=== PATIENT | female | born 1985 | race Caucasian/White ===

== ENCOUNTER → 2017-11-25 13:16 | Outpatient (POV) | payer BC, OTHER, SELFPAY | PROVIDERS: Family Provider Nurse Practitioner Family; PCP Family Medicine; Visit Provider Specialist | DX: R20.2 Paresthesia of skin (principal) | CPT/HCPCS: 95886; 95907 ==

== ENCOUNTER → 2018-01-27 13:47 | Outpatient (CLI) | payer BC, OTHER, SELFPAY ==
[2018-01-27 15:09] LABS: Anion Gap 15.6 mEq/L (5-15); Blood Urea Nitrogen 13 mg/dL (7-18); Carbon Dioxide 25 mmol/L (21.0-32.0); Chloride 105 mmol/L (98-107); Creatinine,Serum 0.65 mg/dL (0.55-1.02); Estimated Glomerular Filt Rate 106 ml/min (>60); GFR (African American) 128 ML/MIN (>60); Glucose 99 mg/dL (74-106); Potassium 4.6 mmoL/L (3.5-5.1); Sodium 141 mmol/L (136-145)
== END ==
PROVIDERS: Visit Provider Surgery
DX: Z01.818 Encounter for other preprocedural examination (principal)
CPT/HCPCS: 36415; 80048

== ENCOUNTER → 2018-03-24 09:33 | Outpatient (POV) | payer BC, SELFPAY | PROVIDERS: Family Provider Nurse Practitioner Family; PCP Family Medicine; Visit Provider Specialist | DX: M25.539 Pain in unspecified wrist (principal); R20.0 Anesthesia of skin | CPT/HCPCS: 95886; 95909 ==

== ENCOUNTER → 2018-05-19 11:23 | Outpatient (CLI) | payer BC, SELFPAY ==
[2018-05-19 11:42] LABS: Basophils # 0.1 K/mm3 (0-0.2); Basophils % 0.6 % (0.1-2.0); Eosinophils # 0.1 K/mm3 (0.0-0.4); Eosinophils % 1.1 % (0.1-12.0); Hematocrit 40.8 % (37.0-47.0); Hemoglobin 13.3 g/dL (12.2-16.2); Lymphocytes # 3.6 K/mm3 (0.7-4.5); Lymphocytes % 31.2 K/mm3 (10-50); Mean Corpuscular HGB Conc 32.5 g/dL (31.8-35.4); Mean Corpuscular Hemoglobin 26.9 pg (27.0-31.2); Mean Corpuscular Volume 82.9 fl (81-99); Mean Platelet Volume 6.8 fl (7.4-10.4); Monocytes # 0.4 K/mm3 (0.1-1.0); Neutrophils # 7.3 K/mm3 (1.8-7.8); Neutrophils % 64.1 % (37.0-80.0); Platelet Count 418 K/mm3 (142-424); Red Blood Count 4.93 M/mm3 (4.20-5.40); Red Cell Distribution Width 13.1 % (11.5-17.5); White Blood Count 11.4 K/mm3 (4.8-10.8)
[2018-05-19 12:22] LABS: Anion Gap 16.1 mEq/L (5-15); Blood Urea Nitrogen 12 mg/dL (7-18); C-Reactive Protein 1.3 mg/L (0.0-0.9); Calcium 9.2 mg/dL (8.5-10.1); Carbon Dioxide 23 mmol/L (21.0-32.0); Chloride 102 mmol/L (98-107); Creatinine,Serum 0.74 mg/dL (0.55-1.02); Estimated Glomerular Filt Rate 91 ml/min (>60); Ferritin 67 ng/mL (8-388); GFR (African American) 110 ML/MIN (>60); Glucose 105 mg/dL (74-106); Potassium 4.1 mmoL/L (3.5-5.1); Sodium 137 mmol/L (136-145)
[2018-05-19 12:24] LABS: Erythrocyte Sedimentation Rate 47 mm/hr (0-20)
[2018-05-20 08:22] LABS: Iron 56 ug/dL (27-159); UIBC 301 ug/dL (131-425)
[2018-05-21 11:25] LABS: Vitamin B12 702 pg/mL (232-1245)
[2018-05-21 11:26] LABS: Vitamin D 25 Hydroxy 28.1 ng/mL (30.0-100.0)
[2018-05-21 11:30] LABS: Iron Saturation 16 % (15-55)
== END ==
PROVIDERS: PCP Nurse Practitioner Family; Visit Provider Nurse Practitioner Acute Care
DX: R19.7 Diarrhea, unspecified (principal); R13.10 Dysphagia, unspecified
CPT/HCPCS: 36415; 80048; 82607; 82652; 82728; 83540; 83550; 85025; 85651; 86140

== ENCOUNTER → 2019-01-20 14:33 | Outpatient (CLI) | payer BC, SELFPAY ==
[2019-01-20 15:14] LABS: Basophils # 0.1 K/mm3 (0-0.2); Basophils % 0.6 % (0.1-2.0); Eosinophils # 0.1 K/mm3 (0.0-0.4); Eosinophils % 1.1 % (0.1-12.0); Hematocrit 39.5 % (37.0-47.0); Hemoglobin 13.1 g/dL (12.2-16.2); Lymphocytes # 3.3 K/mm3 (0.7-4.5); Lymphocytes % 28.6 % (10-50); Mean Corpuscular HGB Conc 33.2 g/dL (31.8-35.4); Mean Corpuscular Hemoglobin 26.5 pg (27.0-31.2); Mean Corpuscular Volume 79.7 fl (81-99); Mean Platelet Volume 6.8 fl (7.4-10.4); Monocytes # 0.5 K/mm3 (0.1-1.0); Neutrophils # 7.6 K/mm3 (1.8-7.8); Neutrophils % 65.7 % (37.0-80.0); Platelet Count 390 K/mm3 (142-424); Red Blood Count 4.96 M/mm3 (4.20-5.40); Red Cell Distribution Width 13.1 % (11.5-17.5); White Blood Count 11.6 K/mm3 (4.8-10.8)
[2019-01-20 18:34] LABS: Alanine Aminotransferase 22 U/L (12-78); Albumin Level 3.6 gm/dL (3.4-5.0); Alkaline Phosphatase 75 U/L (46-116); Anion Gap 16.2 mEq/L (5-15); Aspartate Amino Transferase 9 U/L (15-37); Bilirubin,Total 0.2 mg/dL (0.2-1.0); Blood Urea Nitrogen 16 mg/dL (7-18); Calcium 9.4 mg/dL (8.5-10.1); Carbon Dioxide 26 mmol/L (21.0-32.0); Chloride 105 mmol/L (98-107); Chol/HDL Ratio 7.7 (1-3.5); Cholesterol 231 mg/dL (140-200); Creatinine,Serum 0.71 mg/dL (0.55-1.02); Estimated Glomerular Filt Rate 95 ml/min (>60); Free T4 (Free Thyroxine) 1.06 ng/dl (0.76-1.46); GFR (African American) 115 ML/MIN (>60); Globulin 3.7 gm/dl (1.3-3.2); Glucose 84 mg/dL (74-106); HDL Cholesterol 30 mg/dL (29-89); LDL Cholesterol 168 mg/dL (0-130); Potassium 4.2 mmoL/L (3.5-5.1); Sodium 143 mmol/L (136-145); Thyroid Stimulating Hormone 2.09 uIU/ml (0.358-3.740); Total Protein,Serum 7.3 gm/dL (6.4-8.2); Triglycerides 167 mg/dL (30-200); VLDL Cholesterol 33 mg/dL (0-40)
== END ==
PROVIDERS: Visit Provider Nurse Practitioner Family
DX: R63.4 Abnormal weight loss (principal); E78.2 Mixed hyperlipidemia
CPT/HCPCS: 36415; 80053; 80061; 84439; 84443; 85025

== ENCOUNTER → 2019-11-06 14:23 | Outpatient (CLI) | payer BC, SELFPAY ==
--- NOTE | 2019-11-06 14:30 | XR_ITS ---
PROCEDURE: XR WRIST LT MIN 3V CLINICAL INDICATION: LT WRIST INJURY,LT WRIST PAIN COMPARISON: No exams were available for comparison FINDINGS: No fracture, dislocation, lytic change, or blastic change evident. No significant degenerative change IMPRESSION: No acute findings. Dictated by: Carlitos Covarrubias MD 11/06/2019 14:47 Electronically signed by Carlitos Covarrubias MD in [place] 11/06/2019 14:47
== END ==
PROVIDERS: PCP Nurse Practitioner Family; Visit Provider Nurse Practitioner Family
DX: S69.92XA Unspecified injury of left wrist, hand and finger(s), initial encounter (principal); M25.532 Pain in left wrist
CPT/HCPCS: 73110

== ENCOUNTER → 2020-08-04 14:45 | Outpatient (CLI) | payer BC, SELFPAY ==
--- NOTE | 2020-08-04 14:51 | XR_ITS ---
PROCEDURE: XR LUMBAR SPINE MIN 4V CLINICAL INDICATION: LUMBAGO W/SCIATICA COMPARISON: CR LS5 LUMBAR SPINE 5 VIEWS from 08/22/2016 FINDINGS: No fracture or dislocation. No lytic or blastic change. There is normal mineralization. There is minimal lumbar curvature convex right. Mild degenerative disc disease is present at L4-5 . there is partial lumbarization of L5. IMPRESSION: Degenerative disc disease L4-5 Dictated by: Carlitos Covarrubias MD 08/04/2020 16:42 Carlitos Covarrubias MD in [place] 08/04/2020 16:42
== END ==
PROVIDERS: PCP Nurse Practitioner Family; Visit Provider Nurse Practitioner Family
DX: M54.42 Lumbago with sciatica, left side (principal)
CPT/HCPCS: 72110

== ENCOUNTER → 2020-08-09 07:46 | Outpatient (CLI) | payer BC, SELFPAY ==
--- NOTE | 2020-08-09 07:51 | MR_ITS ---
PROCEDURE: MR LUMBAR SPINE WO CON CLINICAL INDICATION: LUMBAGO WITH SCIATICA, LEFT SIDE LOW BACK PAIN, LEFT LEG NUMBNESS, XRAYS 08-04-20. PRIOR MRI 10-11-16 COMPARISON: MR [facility] MRI-BRAIN W/WO from 07/16/2017 CR XR LUMBAR SPINE MIN 4V from 08/04/2020 TECHNIQUE: Standard multiplanar multiecho sequences are performed without contrast. 3-D MIP and myelographic images are also rendered and reviewed FINDINGS: There is normal alignment. The spinal cord ends at the T12-L1 level. L1-L2: Unremarkable. L2-L3: Unremarkable. L3-L4: Unremarkable. L4-5: There is degenerative disc disease at L4-5. There are type 1 endplate changes with minimal bulging disc and some minimal endplate irregularity of the inferior endplate of L4. L5-S1: Unremarkable. IMPRESSION: Degenerative disc disease at L4-5 with type 1 discogenic endplate changes and minimal bulging disc.. The changes at L4-5 could also be seen with early discitis. Please correlate with clinical parameters. Dictated by: Carlitos Covarrubias MD 08/11/2020 08:39 Carlitos Covarrubias MD in [place] 08/11/2020 08:39
== END ==
PROVIDERS: PCP Nurse Practitioner Family; Visit Provider Nurse Practitioner Family
DX: M54.42 Lumbago with sciatica, left side (principal); M43.06 Spondylolysis, lumbar region
CPT/HCPCS: 72148; 76376

== ENCOUNTER → 2020-08-23 12:28 | Outpatient (CLI) | payer BC, SELFPAY ==
[2020-08-23 12:57] LABS: Basophils # 0.1 K/mm3 (0-0.2); Basophils % 0.5 % (0.1-2.0); Eosinophils # 0.2 K/mm3 (0.0-0.4); Eosinophils % 1.1 % (0.1-12.0); Hematocrit 41.3 % (37.0-47.0); Hemoglobin 14.3 g/dL (12.2-16.2); Lymphocytes # 3.7 K/mm3 (0.7-4.5); Lymphocytes % 22.7 % (10-50); Mean Corpuscular HGB Conc 34.6 g/dL (31.8-35.4); Mean Corpuscular Hemoglobin 28.6 pg (27.0-31.2); Mean Corpuscular Volume 82.7 fl (81-99); Mean Platelet Volume 6.8 fl (7.4-10.4); Monocytes # 0.6 K/mm3 (0.1-1.0); Monocytes % 3.7 % (1.7-9.3); Neutrophils # 11.8 K/mm3 (1.8-7.8); Platelet Count 417 K/mm3 (142-424); Red Blood Count 4.99 M/mm3 (4.20-5.40); Red Cell Distribution Width 13.8 % (11.5-17.5); White Blood Count 16.4 K/mm3 (4.8-10.8)
[2020-08-23 13:12] LABS: MANUAL DIFFERENTIAL MANUAL DIFFERENTIAL (MANUAL DIFF)
[2020-08-23 13:17] LABS: Chloride 102 mmol/L (98-107); Potassium 4.2 mmoL/L (3.5-5.1); Sodium 137 mmol/L (136-145)
[2020-08-23 13:20] LABS: Alanine Aminotransferase 19 U/L (12-78); Albumin Level 4.5 g/dl (3.5-5.0); Albumin/Globulin Ratio 1.2 (1.1-1.8); Alkaline Phosphatase 122 U/L (38-126); Anion Gap 13.2 mEq/L (5-15); Aspartate Amino Transferase 23 U/L (14-36); Bilirubin,Total 0.4 mg/dl (0.2-1.3); Blood Urea Nitrogen 17 mg/dl (7-17); Carbon Dioxide 26 mmol/L (22.0-30.0); Estimated Glomerular Filt Rate 114 ml/min (>60); GFR (African American) 138 ML/MIN (>60); Globulin 3.9 g/dL (1.3-3.2); Total Protein,Serum 8.4 g/dl (6.3-8.2)
[2020-08-23 13:21] LABS: Calcium 10.2 mg/dl (8.4-10.2); Glucose 92 mg/dl (74-100)
--- NOTE | 2020-08-23 14:17 | US_ITS ---
PROCEDURE: US TRANSVAGINAL CLINICAL INDICATION: PELVIC PAIN COMPARISON: No exams were available for comparison FINDINGS: UTERUS: 7cm x 5cmx 3cm with a combined endometrial thickness of 3.7mm LEFT OVARY: [id number] with a volume of 3.4ml. RIGHT OVARY: [id number] with a volume of 14.4ml. The uterus is retroverted and there is a small nabothian cyst. 2 cm cyst is present involving the right ovary. Left ovary is difficult to visualize but is felt to be present on the transabdominal images. IMPRESSION: 2 cm right ovarian cyst otherwise negative pelvic ultrasound Dictated by: Carlitos Covarrubias MD 08/23/2020 19:06 Carlitos Covarrubias MD in [place] 08/23/2020 19:06
[2020-08-23 15:03] LABS: Lymphocytes % 32 % (10-50); Monocytes % 4 % (2-9); Neutrophils % 64 % (42-76); Platelet Estimate Normal; RBC Morphology Normal; Total Cells Counted 100
[2020-08-23 18:33] LABS: HCG,Quantitative < 2 mIU/ml (0-5.42)
== END ==
PROVIDERS: PCP Nurse Practitioner Family; Visit Provider Nurse Practitioner Family
DX: R10.2 Pelvic and perineal pain (principal)
CPT/HCPCS: 36415; 76830; 80053; 84702; 85007; 85025

== ENCOUNTER → 2020-08-25 09:56 | Outpatient (CLI) | payer BC, SELFPAY ==
--- NOTE | 2020-08-25 10:02 | CT_ITS ---
PROCEDURE: CT ABDOMEN PELVIS W CON CLINICAL INDICATION: LOWER ABD PAIN, DIVERTICULOSIS, LEUKOCYTOSIS Left lower quadrant pain COMPARISON: No exams were available for comparison TECHNIQUE: IV Contrast: 75ML Isovue 370 Oral Contrast 10ml Gastroview Axial images obtained with sagittal and coronal reformats. All CT scans at the facility use one or more dose reduction, viz: automated exposure control, ma/kV adjustment per patient size (including targeted exams where dose is matched to indication, i.e. head), or iterative reconstruction technique. FINDINGS: LOWER THORAX: No acute finding ABDOMEN & PELVIS: There is diffuse fatty liver. The gallbladder, spleen, adrenal glands, pancreas, and kidneys have an unremarkable appearance. No renal or ureteral calculi. No hydronephrosis. No intestinal obstruction or free air. No evidence of appendicitis. No evidence of diverticulitis. There is mild thickening the sigmoid colon. This could be due to nondistention or mild colitis. There is a right ovarian cyst measuring 2.9 cm. No loculated fluid collections. No acute bony findings. There are few small nodes in the retroperitoneum. There is a small umbilical hernia containing fat IMPRESSION: 1. Mild thickening of the sigmoid colon. This may be due to nondistention or mild colitis. No evidence of diverticulitis. 2. Fatty liver Dictated by: Carlitos Covarrubias MD 08/25/2020 15:28 Carlitos Covarrubias MD in [place] 08/25/2020 15:28
== END ==
PROVIDERS: PCP Nurse Practitioner Family; Visit Provider Nurse Practitioner Family
DX: R10.30 Lower abdominal pain, unspecified (principal); K57.90 Diverticulosis of intestine, part unspecified, without perforation or abscess without bleeding; D72.829 Elevated white blood cell count, unspecified
CPT/HCPCS: 74177; Q9967

== ENCOUNTER → 2020-09-01 11:23 | Outpatient (CLI) | payer BC, SELFPAY ==
[2020-09-02 07:47] LABS: Covid-19 Nasal PCR Sendout P&C NEGATIVE
== END ==
PROVIDERS: PCP Nurse Practitioner Family; Visit Provider Nurse Practitioner Family
DX: Z11.52 Encounter for screening for COVID-19 (principal)
CPT/HCPCS: U0004

== ENCOUNTER → 2020-10-19 08:49 | Outpatient (CLI) | payer BC, SELFPAY ==
--- NOTE | 2020-10-19 08:55 | US_ITS ---
PROCEDURE: US ABDOMEN LIMITED CLINICAL INDICATION: DYSPEPSIA, RUQ ABD PAIN COMPARISON: No exams were available for comparison FINDINGS: PANCREAS: Unremarkable. No obvious mass or abnormal fluid collection. No ductal dilatation LIVER: Diffuse increased echogenicity of the liver with poor through transmission of sound consistent with hepatic steatosis. No focal liver lesion demonstrated. There is appropriate direction of blood flow within non dilated portal vein. RIGHT KIDNEY: Unremarkable. Normal size and echogenicity. No hydronephrosis GALLBLADDER: No gallstones, gallbladder wall thickening, pericholecystic fluid, or biliary dilatation. IMPRESSION: Fatty liver otherwise negative right upper quadrant Dictated by: Carlitos Covarrubias MD 10/19/2020 17:17 Carlitos Covarrubias MD in [place] 10/19/2020 17:17
== END ==
PROVIDERS: PCP Nurse Practitioner Family; Visit Provider Nurse Practitioner Family
DX: R10.13 Epigastric pain (principal); R10.11 Right upper quadrant pain
CPT/HCPCS: 76705

== ENCOUNTER → 2021-04-18 10:42 | Outpatient (CLI) | payer BC, SELFPAY ==
--- NOTE | 2021-04-18 10:49 | US_ITS ---
PROCEDURE: US BREAST RT COMPLETE CLINICAL INDICATION: LUMP OF RT BREAST COMPARISON: No exams were available for comparison FINDINGS: Diffuse heterogenic echogenicity of the breast parenchyma not unusual at this age. A small hypoechoic oval lesion at 7 o'clock position mid breast at the site of the patient's complaint measuring 0.6 x 0.2 by 0.6 cm likely a small cyst. Also there is a small oval lesion with homogeneous internal echoes at the 12 o'clock position near the nipple measuring 0.6 x 0.2 x 0.8 cm and likely a small intramammary node. There is a normal appearing node in the axilla. IMPRESSION: Probable small cyst at site of the patient's complaint in a background of mild fibrocystic changes Dictated by: Dr. Rad Trammell MD 04/21/2021 08:16 Dr. Rad Trammell MD in [place] 04/21/2021 08:16
== END ==
PROVIDERS: PCP Nurse Practitioner Family; Visit Provider Nurse Practitioner Family
DX: N63.10 Unspecified lump in the right breast, unspecified quadrant (principal)
CPT/HCPCS: 76641

== ENCOUNTER → 2022-09-14 09:57 | Outpatient (CLI) | payer BC, SELFPAY ==
--- NOTE | 2022-09-14 10:35 | XR_ITS ---
FINAL REPORT CLINICAL HISTORY: LT HEEL PAIN FINDINGS: Left foot Three views were obtained. There is no acute fracture or dislocation. The joint spaces appear normal. No soft tissue abnormality is identified. There is a tiny plantar calcaneal spur. IMPRESSION: No acute process. Reviewed, Interpreted and Dictated by Nakul Caro MD Transcribed by Stacy Diaz Authenticated and [facility]
--- NOTE | 2022-09-14 10:35 | XR_ITS ---
FINAL REPORT CLINICAL HISTORY: RT KNEE PAIN,RT KNEE SWELLING FINDINGS: Right knee Three views were obtained. There is no acute fracture or dislocation. The joint spaces appear normal. No soft tissue abnormality is identified. IMPRESSION: No acute process. Reviewed, Interpreted and Dictated by Nakul Caro MD Transcribed by Stacy Diaz Authenticated and [facility]
[2022-09-14 11:01] LABS: Hemoglobin A1C 5.3 % (4.0-6.0)
[2022-09-14 11:14] LABS: Chloride 106 mmol/L (98-107); Potassium 4.5 mmoL/L (3.5-5.1); Sodium 140 mmol/L (136-145)
[2022-09-14 11:16] LABS: Alanine Aminotransferase 15 U/L (12-78); Aspartate Amino Transferase 22 U/L (14-36); Blood Urea Nitrogen 13 mg/dl (7-17); Estimated Glomerular Filt Rate 113 ml/min (>60); GFR (African American) 137 ML/MIN (>60)
[2022-09-14 11:17] LABS: Albumin Level 4.4 g/dl (3.5-5.0); Albumin/Globulin Ratio 1.3 (1.1-1.8); Alkaline Phosphatase 76 U/L (38-126); Anion Gap 14.5 mEq/L (5-15); Bilirubin,Total 0.5 mg/dl (0.2-1.3); Calcium 9.1 mg/dl (8.4-10.2); Carbon Dioxide 24 mmol/L (22.0-30.0); Globulin 3.3 g/dL (1.3-3.2); Glucose 87 mg/dl (74-100); Total Protein,Serum 7.7 g/dl (6.3-8.2)
[2022-09-14 11:47] LABS: Thyroid Stimulating Hormone 1.38 uIU/mL (0.465-4.68)
== END ==
PROVIDERS: PCP Nurse Practitioner Family; Visit Provider Nurse Practitioner Family
DX: R63.5 Abnormal weight gain (principal); M25.561 Pain in right knee; M25.461 Effusion, right knee; M79.672 Pain in left foot
CPT/HCPCS: 36415; 73562; 73630; 80053; 83036; 84439; 84443

== ENCOUNTER 2024-05-29 12:53 | Outpatient (CLI) | payer BC, SELFPAY ==
--- NOTE | 2024-05-29 13:01 | XR_ITS ---
FINAL REPORT CLINICAL HISTORY: left wrist paim COMPARISON: None FINDINGS: LEFT WRIST Three views demonstrate no acute fracture or dislocation. The visualized joint spaces are normally aligned. The soft tissues are unremarkable. IMPRESSION: No acute bony abnormality. Reviewed, Interpreted and Dictated by Erasmo Iglesias III, MD Transcribed by Norah Tellez Authenticated and [facility]
--- NOTE | 2024-05-29 13:01 | XR_ITS ---
FINAL REPORT CLINICAL HISTORY: right wrist pain COMPARISON: None FINDINGS: RIGHT WRIST Three views demonstrate no acute fracture or dislocation. The visualized joint spaces are normally aligned. The soft tissues are unremarkable. IMPRESSION: No acute bony abnormality. Reviewed, Interpreted and Dictated by Erasmo Iglesias III, MD Transcribed by Norah Tellez Authenticated and [facility]
--- NOTE | 2024-05-29 13:03 | MM_ITS ---
PROCEDURE INFORMATION: Exam: Bilateral Diagnostic Breast Tomosynthesis Exam date and time: 05/29/2024 12:53 PM Age: 38 years old Clinical indication: Right breast pain TECHNIQUE: Imaging protocol: Bilateral Diagnostic tomosynthesis and 2D mammography including computer-aided detection (CAD) when performed. Unilateral or bilateral exam. COMPARISON: US BREAST RT COMPLETE 04/18/2021 10:53 AM FINDINGS: MAMMOGRAPHY: Breast composition: The breasts are heterogeneously dense, which may obscure small masses. Breast mammogram findings: There is no stellate mass, architectural distortion or suspicious microcalcifications in either breast to suggest malignancy. No skin thickening or axillary adenopathy. IMPRESSION: Patient to return for right breast ultrasound for full evaluation of right breast pain ASSESSMENT: BI-RADS Category 0: Incomplete- Need Additional Imaging Evaluation
== END 2024-05-29 23:59 | disposition home or self-care (01) ==
LOC: RAD 12:56
PROVIDERS: PCP Nurse Practitioner Family; Visit Provider Nurse Practitioner Family
DX: M25.531 Pain in right wrist (principal); M25.532 Pain in left wrist; N64.4 Mastodynia
CPT/HCPCS: 73110; 77062; 77066; G0279

== ENCOUNTER 2024-06-09 15:22 | Outpatient (CLI) | payer BC, SELFPAY ==
--- NOTE | 2024-06-09 15:26 | US_ITS ---
PROCEDURE INFORMATION: Exam: US Right Breast, Complete Exam date and time: 06/09/2024 3:32 PM Age: 38 years old Clinical indication: Right breast pain. Normal mammogram on 05/29/2024. TECHNIQUE: Imaging protocol: Complete ultrasound of all four quadrants of the right breast and the retroareolar regions, including ultrasound of the axilla when performed. COMPARISON: US BREAST RT COMPLETE 04/18/2021 10:53 AM FINDINGS: ULTRASOUND: Breast ultrasound findings: In the area of pain in the right breast lower outer quadrant, 6 o'clock axis, 5 cm from the nipple, there is a complicated cyst measuring 0.8 x 0.4 x 0.4 cm. A similar appearing complicated cyst is seen in the right retroareolar breast at 12 o'clock, measuring 0.6 x 0.7 x 0.3 cm. Incidentally in the right breast upper outer quadrant, 10 o'clock axis, 3 cm from the nipple, there is a questionable hypoechoic mass versus dense fibroglandular tissue, measured to be 0.5 x 0.5 x 0.3 cm. No suspicious shadowing or distortion. Benign lymph node visualized in the right axilla. IMPRESSION: 1. Probably benign complicated cysts in the right breast 6 o'clock axis, 5 cm from the nipple and 12 o'clock retroareolar region, as above. Six-month follow-up right breast ultrasound recommended for close surveillance. 2. Probably benign questionable hypoechoic mass versus dense fibroglandular tissue in the right upper outer 10 o'clock axis, 3 cm from the nipple. Six-month follow-up right breast ultrasound of this finding is also recommended for close surveillance. ASSESSMENT: BI-RADS Category 3: Probably benign.
== END 2024-06-09 23:59 | disposition home or self-care (01) ==
LOC: RAD 15:22
PROVIDERS: PCP Nurse Practitioner Family; Visit Provider Nurse Practitioner Family
DX: N64.4 Mastodynia (principal)
CPT/HCPCS: 76641

== ENCOUNTER 2024-10-29 08:13 | Emergency (ER) | payer BC, MEDICAID, SELFPAY ==
--- NOTE | 2024-10-29 08:17 | HMH.EDGENADL ---
Discharge Plan Disposition Patient Disposition: Home, Self-Care Condition: Good Prescriptions Prescriptions: New simethicone 80 mg tablet,chewable 80 mg PO BID PRN (Reason: abdominal distention) 10 Days Qty: 14 0RF Probiotic 3 billion cell capsule 3,000 mmu cells PO DAILY Qty: 30 0RF Rx Instructions: administer with a meal loperamide 2 mg capsule 2 mg PO Q6H PRN (Reason: loose stool) 5 Days Qty: 10 0RF No Action buspirone 10 mg tablet 7.5 mg PO DAILY Referrals Follow up/Referrals: Maria Teresa Bermeo APRN [Primary Care Provider] - See instructions Activity Restrictions/Add. Instructions Additional Instructions/Restrictions: As we discussed, your CT scan and labs suggest that you have a colitis or a stomach bug that is causing your symptoms. I prescribed medications that can help keep your symptoms under control. Please make sure you are staying hydrated as well. Please return with any new or worsening symptoms. Clinical Impressions Clinical Impression: Colitis Instructions Patient Instructions: DI for Acute Abdominal Pain Print Language Print Language: Hungarian Discharge ED Provider: Alex Aguillon Adult HPI General Chief complaint: Abdominal Pain Stated complaint: abd pain, diarrhea, nausea Time Seen by Provider: 10/29/24 08:17 History of Present Illness HPI narrative: Patient presents for evaluation of diffuse abdominal pain, gradual in onset, with no associated dysuria, patient describes associated nonbloody diarrhea with no emesis. Has not had similar symptoms before. No exacerbating or relieving factors. Pain is crampy in nature and intermittent. No syncope or presyncope. No dysuria or frequency. No vaginal bleeding or vaginal discharge. Please note that above description of symptoms, in this electronic medical record under categorization of recalled from ER triage doctor by RN are reflective of an initial nursing assessment, however, is not reflective of my full history and physical exam that was personally taken and clarified. Consequentially, this preceding description of symptoms, which may include the patient's categorized chief complaint in the EMR, do not reflect my personal clinical impression, and the ultimate description of history of present illness and patient stated complaints should be deferred to this section of the note. Unless stated otherwise or congruent with this section of the note, additional signs, symptoms, or incongruence should be interpreted as inaccurate with my clinical impression. Related Data Home Medications ?Medication ?Instructions ?Recorded ?Confirmed buspirone 10 mg tablet 7.5 mg PO DAILY Anxiety 10/10/21 10/29/24 Previous Rx's ?Medication ?Instructions ?Recorded lactobacillus combination no.4 3 3,000 mmu cells PO DAILY #30 caps 10/29/24 billion cell capsule (Probiotic) loperamide 2 mg capsule 2 mg PO Q6H PRN loose stool 5 days 10/29/24 #10 caps simethicone 80 mg chewable tablet 80 mg PO BID PRN abdominal 10/29/24 distention 10 days #14 tabs Allergies Allergy/AdvReac Type Severity Reaction Status Date / Time No Known Allergies Allergy Verified 10/29/24 08:39 PFSH PFS Disclaimer: The information contained in this section may have been updated after the patient was seen, as this information can be updated by other users. Medical History (Updated 10/29/24 @ 10:55 by Alex Aguillon MD) Swollen lymph nodes Loud snoring Mouth breathing Bilateral cervical radiculopathy Arthritis Back pain Anxiety Carpal tunnel syndrome Surgical History H/O gastric sleeve Family History Father Alcoholism Grandmother Cancer Family/Other Cancer Grandfather Heart attack Thyroid disorder Other Asthma Diabetes Hypertension Stroke Social History Smoking Status: Former smoker tobacco type: e-cigarettes smoking status stop date: 06/2024 quit status: has quit before second hand exposure: No alcohol intake: former counseling provided: none substance use type: former substance user and marijuana current occupational status: unemployed Travel in the last 8 weeks: None household members: spouse and family housing: house current occupation: stay at home mom caffeine: No Have you lived/traveled outside [place] in past 30 days?: No Contact w/someone who lives/traveled outside US past 30 days?: No Exposure to someone with infectious disease in past 14 days?: No Do you have a fever (greater than 100.4 F or 38 C)?: No Have you tested positive for COVID-19: No Exposed to someone with COVID-19 in past 14 days?: No Do you have a sore throat?: No Do you have a cough?: No Do you have any weakness?: No Do you have any diarrhea?: Yes Are you experiencing any unusual bleeding?: No Do you have any muscle aches/pain?: No Do you have any abdominal pain?: Yes Are you experiencing loss of taste or smell?: No Other Medical History Have you received the Flu Vaccine for this season: No Have you received the Pneumonia Vaccine: No ROS Obtained: Yes other As per HPI Physical Exam General General appearance: alert and in no apparent distress Head Head exam: atraumatic and normocephalic Eye Eye exam: Present normal appearance Neck Neck exam: Present normal inspection Chest Chest inspection: Present normal inspection and symmetric chest wall rise Respiratory Respiratory exam: Present normal lung sounds bilaterally; Absent respiratory distress Cardiovascular Cardiovascular exam: Present regular rate and normal rhythm Abdominal Exam Abdominal exam: Present soft Neurological Exam Neurological exam: Present alert and oriented X3 Psychiatric Psychiatric exam: Present normal affect and normal mood Skin Skin exam: Present warm and dry Medical Decision Making Medical Records Medical records reviewed: Yes I reviewed the patient's medical records. Screening: Per USPSTF and CDC recommendations, given the prevalence of disease in our region, it is our hospital?s policy to screen for HIV and viral Hepatitis for all patients aged 18 and over and those with ongoing risk factors. [place] Inquiry Pt receiving controlled substance: No Vital Signs: 10/29/24 08:23 10/29/24 10:00 10/29/24 10:30 Temperature 97.8 F Temperature Source Oral Pulse Rate 83 80 Pulse Rate [Radial] 88 Respiratory Rate 16 Blood Pressure 104/73 L 123/82 Blood Pressure [Right Arm] 114/65 Blood Pressure Mean 84 93 Blood Pressure Mean [Right Arm] 81 Blood Pressure Source [Right Arm] Automatic Cuff Blood Pressure Position [Right Arm] Sitting 02 Sat by Pulse Oximetry 98 100 100 Oxygen Delivery Method Room Air 10/29/24 11:07 Temperature 97.9 F Temperature Source Pulse Rate 89 Pulse Rate [Radial] Respiratory Rate 18 Blood Pressure 105/68 L Blood Pressure [Right Arm] Blood Pressure Mean Blood Pressure Mean [Right Arm] Blood Pressure Source [Right Arm] Blood Pressure Position [Right Arm] 02 Sat by Pulse Oximetry Oxygen Delivery Method Lab Data Lab Results 10/29/24 08:19: Urine Color Yellow, Urine Appearance Clear, Urine pH 6.5, Ur Specific [place] 1.020, Urine Protein 30, Urine Glucose (UA) Negative, Urine Ketones 15, Urine Blood 3+ A, Urine Nitrate Negative, Urine Bilirubin 1+ A, Urine Urobilinogen 0.2, Ur Leukocyte Esterase Negative, Urine HCG, Qual Negative 10/29/24 08:35: WBC 9.2, RBC 4.34, Hgb 12.4, Hct 38.1, MCV 87.8, MCH 28.6, MCHC 32.5, RDW 13.7, Plt Count 276, MPV 9.3, Neut % (Auto) 76.2, Lymph % (Auto) 16.3, Ceiba % (Auto) 6.7, Eos % (Auto) 0.3, Baso % (Auto) 0.3, Neut # (Auto) 7.0, Lymph # (Auto) 1.5, Ceiba # (Auto) 0.6, Eos # (Auto) 0.0, Baso # (Auto) 0.0, Sodium 140, Potassium 4.1, Chloride 107, Carbon Dioxide 24, Anion Gap 13.1, BUN 15, Creatinine 0.70, Estimated Creat Clear 124, Estimated GFR 93, Est GFR ( Amer) 113, Glucose 84, Calcium 9.0, Total Bilirubin 0.3, AST 23, ALT 17, Alkaline Phosphatase 71, Total Protein 7.5, Albumin 4.4, Globulin 3.1, Albumin/Globulin Ratio 1.4, Lipase 79, HCV Ab BAKARI w/Rflx PCR Qn Negative, HIV Ag/Ab Combo Qual Negative 10/29/24 08:35 10/29/24 08:35 Orders (Tests/Meds): ED MEDICATIONS Discontinued Medications Generic Name Dose Route Start Last Admin Trade Name Sarai PRN Reason Stop Dose Admin Lactated Ringer's 1,000 mls @ 999 mls/hr 10/29/24 08:36 10/29/24 08:48 Lactated Ringer's 1000 Ml Bag IV 10/29/24 09:36 999 mls/hr .Q1H1M ONE Administration Iopamidol 75 ml 10/29/24 09:35 10/29/24 09:38 Iopamidol-370 (76%);100ml Bottle IV 10/29/24 09:36 75 ml ONCE ONE Administration Ondansetron HCl 4 mg 10/29/24 08:28 10/29/24 08:48 Ondansetron 4mg/2ml Vial IV 10/29/24 08:29 4 mg ONCE ONE Administration Sodium Chloride 10 ml 10/29/24 09:35 10/29/24 09:37 Sodium Chloride 0.9% 10ml Syr (Rad Only) IV 10/29/24 09:36 10 ml ONCE ONE Administration Sodium Chloride 50 ml 10/29/24 09:35 10/29/24 09:37 0.9 % Sodium Chloride 50 Ml Vial IV 10/29/24 09:36 Not Given ONCE ONE ORDERS Category Date Time Status CT abdomen pelvis w con Stat Cat Scan 10/29/24 09:13 Completed Complete Blood Count Auto Diff Stat Lab 10/29/24 08:35 Completed Comprehensive Metabolic Panel Stat Lab 10/29/24 08:35 Completed HIV Combo Stat Lab 10/29/24 08:35 Completed Hepatitis C Ab Qual. W/ RFX Stat Lab 10/29/24 08:35 Completed Lipase Stat Lab 10/29/24 08:35 Completed Urinalysis and Microscopic Stat Lab 10/29/24 08:19 Completed Urine , HCG Qual. Stat Lab 10/29/24 08:19 Completed Medical Decision Narrative: Patient with history and exam per above presenting for evaluation of diffuse abdominal pain Diagnoses considered include enteritis, colitis, diverticulitis, appendicitis, among others ED workup and treatment included: ED MEDICATIONS Discontinued Medications Generic Name Dose Route Start Last Admin Trade Name Freq PRN Reason Stop Dose Admin Lactated Ringer's 1,000 mls @ 999 mls/hr 10/29/24 08:36 10/29/24 08:48 Lactated Ringer's 1000 Ml Bag IV 10/29/24 09:36 999 mls/hr .Q1H1M ONE Administration Iopamidol 75 ml 10/29/24 09:35 10/29/24 09:38 Iopamidol-370 (76%);100ml Bottle IV 10/29/24 09:36 75 ml ONCE ONE Administration Ondansetron HCl 4 mg 10/29/24 08:28 10/29/24 08:48 Ondansetron 4mg/2ml Vial IV 10/29/24 08:29 4 mg ONCE ONE Administration Sodium Chloride 10 ml 10/29/24 09:35 10/29/24 09:37 Sodium Chloride 0.9% 10ml Syr (Rad Only) IV 10/29/24 09:36 10 ml ONCE ONE Administration Sodium Chloride 50 ml 10/29/24 09:35 10/29/24 09:37 0.9 % Sodium Chloride 50 Ml Vial IV 10/29/24 09:36 Not Given ONCE ONE ORDERS Category Date Time Status CT abdomen pelvis w con Stat Cat Scan 10/29/24 09:13 Completed Complete Blood Count Auto Diff Stat Lab 10/29/24 08:35 Completed Comprehensive Metabolic Panel Stat Lab 10/29/24 08:35 Completed HIV Combo Stat Lab 10/29/24 08:35 Completed Hepatitis C Ab Qual. W/ RFX Stat Lab 10/29/24 08:35 Completed Lipase Stat Lab 10/29/24 08:35 Completed Urinalysis and Microscopic Stat Lab 10/29/24 08:19 Completed Urine , HCG Qual. Stat Lab 10/29/24 08:19 Completed Labs were independently interpreted by me, significant for no acute findings Imaging was independently visualized and interpreted by me, significant for no acute findings Please refer to radiology report for full details. My clinical impression at this time is most consistent with colitis I discussed my clinical impression with patient and answered all questions. At this time, the evidence for any other entities in the differential is insufficient to warrant any further testing or ED observation. This was explained to the patient. The patient was advised that persistent or worsening symptoms require further evaluation. Critical Care Critical Care Time Critical Care Time: No
[2024-10-29 08:23] VITALS: BP 114/65; PULSE 88; RESP 16; TEMP 36.6; O2SAT 98; BMI 29.2
[2024-10-29 08:31] LABS: Microscopic, Urine URINE MICROSCOPIC (MICROSCOPIC)
[2024-10-29 08:47] LABS: Basophils % 0.3 % (0.1-2.0); Eosinophils % 0.3 % (0.1-12.0); Hematocrit 38.1 % (37.0-47.0); Hemoglobin 12.4 g/dL (12.2-16.2); Lymphocytes # 1.5 K/mm3 (0.7-4.5); Lymphocytes % 16.3 % (10-50); Mean Corpuscular HGB Conc 32.5 g/dL (31.8-35.4); Mean Corpuscular Hemoglobin 28.6 pg (27.0-31.2); Mean Corpuscular Volume 87.8 fl (81-99); Mean Platelet Volume 9.3 fl (7.4-10.4); Monocytes # 0.6 K/mm3 (0.1-1.0); Monocytes % 6.7 % (1.7-9.3); Neutrophils % 76.2 % (37.0-80.0); Platelet Count 276 K/mm3 (142-424); Red Blood Count 4.34 M/mm3 (4.20-5.40); Red Cell Distribution Width 13.7 % (11.5-17.5); White Blood Count 9.2 K/mm3 (4.8-10.8)
[2024-10-29] MEDS: LACTATED RINGERS 1000ML 1,000 ML 999 ML IV (08:48)
[2024-10-29] MEDS: ONDANSETRON 4MG/2ML VIAL 4 MG IV (08:48)
[2024-10-29 08:56] LABS: Appearance,Urine Clear (Clear); Color,Urine Yellow (Yellow); PH,Urine 6.5 (5.0-8.5); Urine Pregnancy, HCG Qual. Negative (Negative)
[2024-10-29 08:57] LABS: Glucose,Urine (UA) Negative (Negative); Ketones,Urine 15 (Negative); Protein,Urine 30 (Negative)
[2024-10-29 08:58] LABS: Bilirubin,Urine 1+ (Negative); Blood, Urine 3+ (Negative); Leukocyte Esterase,Urine Negative (Negative); Nitrate,Urine Negative (Negative); Urobilinogen,Urine 0.2 EU/dl (0.2)
[2024-10-29 08:59] LABS: Alanine Aminotransferase 17 U/L (12-78); Albumin Level 4.4 g/dl (3.5-5.0); Albumin/Globulin Ratio 1.4 (1.1-1.8); Alkaline Phosphatase 71 U/L (38-126); Anion Gap 13.1 mEq/L (5-15); Aspartate Amino Transferase 23 U/L (14-36); Bilirubin,Total 0.3 mg/dl (0.2-1.3); Blood Urea Nitrogen 15 mg/dl (7-17); Carbon Dioxide 24 mmol/L (22.0-30.0); Chloride 107 mmol/L (98-107); Creatinine Clearance Estimated 124 mL/min (50-200); Estimated Glomerular Filt Rate 93 ml/min (>60); GFR (African American) 113 ML/MIN (>60); Globulin 3.1 g/dL (1.3-3.2); Glucose 84 mg/dl (74-100); Lipase 79 U/L (23-300); Potassium 4.1 mmoL/L (3.5-5.1); Sodium 140 mmol/L (136-145); Total Protein,Serum 7.5 g/dl (6.3-8.2)
--- NOTE | 2024-10-29 09:13 | CT_ITS ---
FINAL REPORT TECHNIQUE: After the administration of intravenous contrast, axial images were obtained through the abdomen and pelvis by computed tomography. The study was performed with techniques to keep radiation dose as low as reasonably achievable, (ALARA). Individual dose reduction techniques using automated exposure control or adjustment of mA and/or kV according to the patient's size were employed. CLINICAL HISTORY: diarrhea, RLQ abdominal pain COMPARISON: None FINDINGS: Abdomen: The lung bases are clear. Postoperative changes from a gastric sleeve are noted. The liver parenchyma is homogeneous. The gallbladder is present. The spleen, pancreas, adrenals and kidneys appear unremarkable. The aorta is normal in caliber. There is no free fluid or adenopathy. Pelvis: The appendix is normal in appearance. There is mucosal thickening of the ascending and transverse portions of the colon, that likely represents infectious or inflammatory colitis. The urinary bladder is unremarkable. There is no free fluid or adenopathy. The uterus is anteverted. IMPRESSION: Mucosal thickening of the ascending and transverse portions of the colon, that likely represents infectious or inflammatory colitis. The appendix is normal in appearance. Reviewed, Interpreted and Dictated by Ernesto Sherwood MD Transcribed by Rosa Jaquez Authenticated and [facility]
[2024-10-29] MEDS: SODIUM CHLORIDE 0.9% 10ML SYR (RAD ONLY) 10 ML IV (09:37)
[2024-10-29] MEDS: IOPAMIDOL-370 (76%);100ML BOTTLE 75 ML IV (09:38)
[2024-10-29 10:00] VITALS: BP 104/73; PULSE 83; O2SAT 100
[2024-10-29 10:30] VITALS: BP 123/82; PULSE 80; O2SAT 100
[2024-10-29 10:49] LABS: HIV Combo NEGATIVE (Negative)
[2024-10-29 10:57] LABS: Hepatitis C Ab Qual. W/ RFX NEGATIVE (Negative)
[2024-10-29 11:07] VITALS: BP 105/68; PULSE 89; RESP 18; TEMP 36.6; O2SAT 100
== END 2024-10-29 11:08 | disposition home or self-care (01) ==
PROVIDERS: Emergency Provider Emergency Medicine; PCP Nurse Practitioner Family
DX: K52.9 Noninfective gastroenteritis and colitis, unspecified (principal); R10.84 Generalized abdominal pain
CPT/HCPCS: 74177; 80053; 81001; 81025; 83690; 85025; 86803; 87389; 96361; 96374; 99285; J2405; J7120; Q9967